=== PATIENT | female | born 2000 | race Caucasian/White ===

== ENCOUNTER 2020-04-11 10:07 | Emergency (ER) | payer OTHER, SELFPAY ==
--- NOTE | ~2020-04-11 | XR_ITS ---
EXAMINATION: XR chest 1V portable EXAM DATE: 04/11/2020 10:47 INDICATION: Chest pain radiating to left arm for months. TECHNIQUE: Portable AP frontal chest x-ray was obtained. Comparison is made to prior examination from 04/12/2018. FINDINGS: The lungs are clear. There are no pleural effusions. The cardiomediastinal silhouette is within normal limits. There is no pneumothorax suspected. The bones and soft tissues are unremarkab le. There is no significant interval change. IMPRESSION: No acute cardiopulmonary findings. Reviewed, dictated and finalized at location A.
[2020-04-11 10:12] VITALS: BP 125/69; PULSE 82; RESP 12; TEMP 36.8; O2SAT 99
--- NOTE | 2020-04-11 10:14 | ECG_ITS ---
Measurements Intervals [place] Rate: 72 P: 36 AR: 147 QRS: 10 QRSD: 96 T: 31 QT: 377 QTc: 415 Interpretive Statements SINUS RHYTHM INCOMPLETE RIGHT BUNDLE BRANCH BLOCK BORDERLINE ECG Electronically Signed On 04-11-2020 12:22:04 CDT by Zander Nielsen D.O.
[2020-04-11 10:38] LABS: Basophils Absolute Auto 0.1 K/mm3 (0.0-0.1); Basophils Percent Auto 0.7 % (0.2-1.2); Eosinophils Absolute Auto 0.1 K/mm3 (0-0.3); Eosinophils Percent Auto 0.7 % (0-4.4); Hematocrit 40.7 % (37.0-47.0); Hemoglobin 13.9 g/dL (12.0-15.0); Immature Granulocyte Absolute 0.02 K/mm3 (0.00-0.031); Immature Granulocyte Percent A 0.3 % (0-0.5); Lymphocytes Absolute Auto 2.48 K/mm3 (0.9-3.2); Lymphocytes Percent Auto 34.9 % (18.3-44.2); Mean Corpuscular HGB Conc 34.2 g/dl (32-36); Mean Corpuscular Volume 87.7 fl (80-100); Mean Platelet Volume 9.6 fl (7.4-10.4); Monocytes Absolute Auto 0.5 K/mm3 (0.1-0.6); Monocytes Percent Auto 6.6 % (2.6-8.5); Neutrophils Percent Auto 56.8 % (45.5-73.1); Platelet Count Result 343 k/mm3 (150-375); Red Blood Count 4.64 M/mm3 (4.2-5.4); Red Cell Distribution Width 12.6 % (11.5-14.5); White Blood Count 7.1 K/mm3 (4.5-10.0)
[2020-04-11 10:46] LABS: Partial Thromboplastin Time 25.7 SECONDS (22.3-36.8); Prothrombin Time 12.8 Seconds (11.1-14.7)
[2020-04-11 10:48] LABS: Anion Gap 8 mmol/L (8-16); Blood Urea Nitrogen 12 mg/dL (7-17); Calcium 9.9 mg/dL (8.4-10.2); Carbon Dioxide 27 mmol/L (22-30); Chloride 104 mmol/L (98-107); Estimated CRCL calculation 120 ml/min; Estimated Glomerular Filt Rate > 60; Glucose 77 mg/dL (65-105); Potassium 3.9 mmol/L (3.4-5.0); Sodium 139 mmol/L (137-145)
[2020-04-11 11:00] LABS: Troponin I < 0.012 ng/mL (0.000-0.034)
--- NOTE | 2020-04-11 11:03 | ED.CHESTPAIN ---
HPI - Chest Pain General Chief Complaint: Chest Pain Stated Complaint: CHEST PAIN X 1 MONTH Time Seen by Provider: 04/11/20 10:11 Source: patient Mode of arrival: ambulatory Limitations: no limitations History of Present Illness HPI narrative: Patient is a 19-year-old female who presents with 1 month duration of chest pain that is intermittent and across the chest patient does note history of anxiety and stress. Patient currently denies any pain has not been seen for this complaint. Patient denies any recent illness or other complaints and on arrival is resting comfortably in the room in no distress and no pain Related Data Allergies Allergy/AdvReac Type Severity Reaction Status Date / Time No Known Allergies Allergy Mild Verified 04/11/20 10:16 Review of Systems Review of Systems: All systems reviewed & are unremarkable except as noted in HPI and below PMFSH Past Medical History Medical History (Updated 04/11/20 @ 11:08 by Aristides Fall PA-C) Anxiety Social History Social History (Updated 04/11/20 @ 11:05 by Aristides Fall PA-C) Smoking status: Current every day smoker Gender identity (if verbalized by the patient): Male Exam Narrative: Exam Narrative: GENERAL: Well-appearing, well-nourished, and in no acute distress. HEAD: Normocephalic, atraumatic. EYES: PERRLA and EOMI. ENT: Nares clear, no rhinorrhea or epistaxis. Mucous membranes moist. NECK: Supple. No adenopathy or masses. CHEST: Clear to auscultation. No respiratory distress. No wheezes rales or rhonchi HEART: Regular rate and rhythm. No murmur heard. Normal peripheral pulses. ABDOMEN: Soft, nontender, nondistended EXTREMITIES: Normal range of motion. No edema. SKIN: Warm, dry, no rash. NEURO: No focal deficits. Alert and oriented x3. Normal speech and gait PSYCH: Normal mood and affect. Course Vital Signs Vital signs: Vital Signs Temperature 98.2 F 04/11/20 10:12 Pulse Rate 82 04/11/20 10:12 Respiratory Rate 04/11/20 10:12 Blood Pressure 125/69 04/11/20 10:12 Pulse Oximetry 99 04/11/20 10:12 Temperature 98.2 F 04/11/20 10:12 Pulse Rate 82 04/11/20 10:12 Respiratory Rate 12 04/11/20 10:12 Blood Pressure 125/69 04/11/20 10:12 Pulse Oximetry 99 04/11/20 10:12 MDM - Chest Pain Lab Data Result diagrams: 04/11/20 10:22 04/11/20 10:22 Labs: Lab Results 04/11/20 04/11/20 04/11/20 Range/Units 10:22 10:22 10:22 WBC 7.1 (4.5-10.0) K/mm3 RBC 4.64 (4.2-5.4) M/mm3 Hgb 13.9 (12.0-15.0) g/dL Hct 40.7 (37.0-47.0) % MCV 87.7 (80-100) fl MCH 30.0 (26-34) pg MCHC 34.2 (32-36) g/dl RDW 12.6 (11.5-14.5) % Plt Count 343 (150-375) k/mm3 MPV 9.6 (7.4-10.4) fl Immature Gran % (Auto) 0.3 (0-0.5) % Neut % (Auto) 56.8 (45.5-73.1) % Lymph % (Auto) 34.9 (18.3-44.2) % Chambers % (Auto) 6.6 (2.6-8.5) % Eos % (Auto) 0.7 (0-4.4) % Baso % (Auto) 0.7 (0.2-1.2) % Lymph # (Auto) 2.48 (0.9-3.2) K/mm3 Chambers # (Auto) 0.5 (0.1-0.6) K/mm3 Eos # (Auto) 0.1 (0-0.3) K/mm3 Baso # (Auto) 0.1 (0.0-0.1) K/mm3 Abs Immat Gran (auto) 0.02 (0.00-0.031) K/mm3 Absolute Neuts (auto) 4.0 (1.3-6.7) K/mm3 Absolute Nucleated RBC 0.0 (0.0-0.012) K/mm3 Nucleated RBC % 0.0 (0.0-0.2) % PT 12.8 (11.1-14.7) Seconds INR 1.0 APTT 25.7 (22.3-36.8) SECONDS Sodium 139 (137-145) mmol/L Potassium 3.9 (3.4-5.0) mmol/L Chloride 104 (98-107) mmol/L Carbon Dioxide 27 (22-30) mmol/L Anion Gap 8 (8-16) mmol/L BUN 12 (7-17) mg/dL Creatinine 0.70 (0.7-1.0) mg/dL Estim Creat Clear Calc 120 ml/min Estimated GFR > 60 (59 - ) Glucose 77 (65-105) mg/dL Calcium 9.9 (8.4-10.2) mg/dL Troponin I < 0.012 (0.000-0.034) ng/mL Imaging Data Radiologist's impression: ITS Impressions Chest X-Ray 04/11/20 10:55 IMPRESSION: No acute ca
[2020-04-11 11:43] VITALS: BP 108/51; PULSE 71; RESP 16; O2SAT 100
== END 2020-04-11 11:45 | disposition home or self-care (01) ==
PROVIDERS: Emergency Provider Emergency Medicine
DX: R07.9 Chest pain, unspecified (principal); F17.200 Nicotine dependence, unspecified, uncomplicated; I45.10 Unspecified right bundle-branch block
CPT/HCPCS: 36415; 71045; 80048; 84484; 85025; 85610; 85730; 93005; 99284

== ENCOUNTER 2020-06-06 16:05 | Outpatient (CLI) | payer OTHER, SELFPAY | END 2020-06-06 16:06 | disposition home or self-care (01) | LOC: ANHLAB 16:07 | PROVIDERS: PCP Family Medicine; Visit Provider Internal Medicine Cardiovascular Disease | DX: R00.2 Palpitations (principal) | CPT/HCPCS: 36415; 84443 ==

== ENCOUNTER 2020-07-16 18:58 | Emergency (ER) | payer OTHER, SELFPAY ==
--- NOTE | ~2020-07-16 | XR_ITS ---
EXAMINATION: XR chest 2V EXAM DATE: 07/16/2020 19:37 INDICATION: Left-sided chest pain radiating down arm. TECHNIQUE: Frontal and lateral projections of the chest obtained and reviewed. Comparison is made to prior examination from 04/11/2020. FINDINGS: The lungs are clear. There are no pleural effusions. The cardiomediastinal silhouette is within normal limits. There is no pneumothorax suspected. The bones and soft tissues are unremarkab le. IMPRESSION: Normal chest x-ray exam. Reviewed, dictated and finalized at location A. DYER IMPRESSION: Normal chest x-ray exam.
[2020-07-16 19:07] VITALS: BP 131/66; PULSE 78; RESP 18; TEMP 35.9; O2SAT 100
--- NOTE | 2020-07-16 19:15 | ED.CHESTPAIN ---
HPI - Chest Pain General Chief Complaint: Chest Pain Stated Complaint: chest pain, left arm pain for couple days Time Seen by Provider: 07/16/20 19:15 Source: patient Mode of arrival: ambulatory Limitations: no limitations History of Present Illness HPI narrative: Patient is a 19-year-old female with a history of anxiety who presents for evaluation of chest pain. Patient states she has had approximately 4 days of constant chest pain over the left chest with a tingling sensation in her left arm. She denies loss of strength or weakness in the left arm. Pain is worse with movement in the left arm and shoulder. She denies any pain when she takes a deep breath. She denies any recent heavy lifting, but does take care of her 3 and 1-year-old who she constantly is chasing around. She denies any fever, chills, cough or shortness of breath. No hemoptysis. No recent Covid infection or history of coagulopathy. No leg swelling or calf pain. She is not on control. No recent long car or air travel. She follows with a manager military, Dr. Zarco, for which she is seen in the past for cocaine induced chest pain. She is actually scheduled for an echo and appointment with their office on Thursday. No worsening pain, however patient's father of a heart attack at 50, she was worried regarding the chronicity of her pain. Patient does not smoke. No recent drug use. Related Data Allergies Allergy/AdvReac Type Severity Reaction Status Date / Time No Known Allergies Allergy Mild Verified 04/11/20 10:16 Review of Systems Review of Systems: Narrative: CONSTITUTIONAL: Denies fever, chills, or sweats. ENT: Denies rhinorrhea, congestion CARDIOVASCULAR: Reports chest pain without palpitations or leg edema RESPIRATORY: Denies cough or dyspnea. GASTROINTESTINAL: Denies abdominal pain, nausea, vomiting, or diarrhea. GENITOURINARY: Denies dysuria or hematuria. SKIN: Denies rash or itching. MUSCULOSKELETAL: Denies back pain, joint pain, or myalgia. NEUROLOGIC: Denies headache, numbness, or weakness. PSYCHIATRIC: Reports anxiety PMFSH Past Medical History Medical History Anxiety Social History Social History (Updated 07/16/20 @ 19:32 by Roxanna Koehler MD) Smoking status: Former smoker Tobacco type: cigarettes Alcohol intake: current Alcohol use details: Social, rare Substance use: former Substance use type: crack/cocaine Living arrangements: with family Gender identity (if verbalized by the patient): Female Exam Narrative: Exam Narrative: GENERAL: Awake, alert, conversant HEAD: Normocephalic, atraumatic. EYES: PERRLA and EOMI. ENT: Nares clear, no rhinorrhea or epistaxis. Mucous membranes moist. NECK: Supple. CHEST: No respiratory distress, breathing even and non labored, left chest wall tenderness which exactly reproduces pain, no crepitus, no ecchymosis, no vesicles or lesions along with thorax or chest HEART: Regular rate, sinus rhythm ABDOMEN:Non distended, non tender EXTREMITIES: Normal range of motion. No edema. SKIN: Warm, dry, no rash. NEURO:No focal deficits. Alert and oriented x3 Course Vital Signs Vital signs: Vital Signs Temperature 35.9 C L 07/16/20 19:07 Pulse Rate 78 07/16/20 19:07 Respiratory Rate 18 07/16/20 19:07 Blood Pressure 131/66 07/16/20 19:07 Pulse Oximetry 100 07/16/20 19:07 Temperature 35.9 C L 07/16/20 19:07 Pulse Rate 69 07/16/20 19:17 Respiratory Rate 18 07/16/20 19:07 Blood Pressure 131/66 07/16/20 19:07 Pulse Oximetry 100 07/16/20 19:07 MDM - Chest Pain MDM Narrative Medical decision making narrative: Patient's EKG and labs are without significant high risk changes. Cardiac risk factors reviewed. Patient is felt low risk for ACS and reasonable for further risk stratification testing as an outpatient. Pain was not sudden or maximal or onset without tearing or ripping quality. No other signs or
[2020-07-16 19:17] VITALS: PULSE 69
--- NOTE | 2020-07-16 19:17 | ECG_ITS ---
Measurements Intervals [place] Rate: 84 P: 54 AR: 142 QRS: 22 QRSD: 95 T: 16 QT: 337 QTc: 399 Interpretive Statements SINUS RHYTHM WITH SINUS ARRHYTHMIA INCOMPLETE RIGHT BUNDLE BRANCH BLOCK BASELINE ARTIFACT- I, II, III, AVR, AVL, AVF BORDERLINE ECG Electronically Signed On 07-16-2020 19:47:51 HE[employer] DATA ANALYST by Zander Nielsen D.O.
[2020-07-16 19:28] LABS: Basophils Percent Auto 0.1 % (0.2-1.2); Hematocrit 36.9 % (37.0-47.0); Hemoglobin 11.6 g/dL (12.0-15.0); Immature Granulocyte Absolute 0.02 K/mm3 (0.00-0.031); Immature Granulocyte Percent A 0.3 % (0-0.5); Lymphocytes Absolute Auto 2.51 K/mm3 (0.9-3.2); Mean Corpuscular HGB Conc 31.4 g/dl (32-36); Mean Corpuscular Hemoglobin 25.8 pg (26-34); Mean Platelet Volume 9.9 fl (7.4-10.4); Monocytes Absolute Auto 0.6 K/mm3 (0.1-0.6); Neutrophils Absolute Auto 3.9 K/mm3 (1.3-6.7); Neutrophils Percent Auto 55.6 % (45.5-73.1); Platelet Count Result 330 k/mm3 (150-375); Red Cell Distribution Width 12.7 % (11.5-14.5)
[2020-07-16 19:39] LABS: INR 0.9
[2020-07-16 19:40] LABS: Partial Thromboplastin Time 26.3 SECONDS (22.3-36.8)
[2020-07-16 19:42] LABS: Anion Gap 8 mmol/L (8-16); Blood Urea Nitrogen 14 mg/dL (7-17); Calcium 9.9 mg/dL (8.4-10.2); Carbon Dioxide 30 mmol/L (22-30); Chloride 101 mmol/L (98-107); Estimated CRCL calculation 105 ml/min; Estimated Glomerular Filt Rate > 60; Glucose 74 mg/dL (65-105); Potassium 3.4 mmol/L (3.4-5.0); Sodium 139 mmol/L (137-145)
[2020-07-16 19:52] LABS: Troponin I < 0.012 ng/mL (0.000-0.034)
[2020-07-16 20:48] VITALS: BP 119/77; PULSE 71; RESP 16; O2SAT 97
== END 2020-07-16 20:49 | disposition home or self-care (01) ==
PROVIDERS: Emergency Provider Emergency Medicine; PCP Family Medicine
DX: R07.89 Other chest pain (principal); Z87.891 Personal history of nicotine dependence; I45.10 Unspecified right bundle-branch block
CPT/HCPCS: 36415; 71046; 80048; 84484; 85025; 85610; 85730; 93005; 99284

== ENCOUNTER 2020-11-22 11:52 | Emergency (ER) | payer OTHER, SELFPAY ==
[2020-11-22 11:56] VITALS: BP 109/77; PULSE 62; RESP 16; TEMP 36.3; O2SAT 100
--- NOTE | 2020-11-22 12:01 | ECG_ITS ---
Measurements Intervals [place] Rate: 62 P: 35 NC: 149 QRS: 23 QRSD: 98 T: 24 QT: 391 QTc: 400 Interpretive Statements SINUS RHYTHM WITH SINUS ARRHYTHMIA INCOMPLETE RIGHT BUNDLE BRANCH BLOCK BORDERLINE ECG Electronically Signed On 11-22-2020 12:11:20 CDT by Zander Nielsen D.O.
[2020-11-22 12:28] LABS: Basophils Absolute Auto 0.1 K/mm3 (0.0-0.1); Basophils Percent Auto 0.8 % (0.2-1.2); Eosinophils Percent Auto 0.3 % (0-4.4); Hematocrit 38.7 % (37.0-47.0); Hemoglobin 12.4 g/dL (12.0-15.0); Immature Granulocyte Absolute 0.01 K/mm3 (0.00-0.031); Immature Granulocyte Percent A 0.2 % (0-0.5); Lymphocytes Absolute Auto 2.44 K/mm3 (0.9-3.2); Mean Corpuscular Hemoglobin 27.4 pg (26-34); Mean Corpuscular Volume 85.6 fl (80-100); Mean Platelet Volume 9.7 fl (7.4-10.4); Monocytes Absolute Auto 0.6 K/mm3 (0.1-0.6); Monocytes Percent Auto 9.1 % (2.6-8.5); Neutrophils Absolute Auto 3.2 K/mm3 (1.3-6.7); Neutrophils Percent Auto 50.6 % (45.5-73.1); Platelet Count Result 301 k/mm3 (150-375); Red Blood Count 4.52 M/mm3 (4.2-5.4); Red Cell Distribution Width 16.1 % (11.5-14.5); White Blood Count 6.3 K/mm3 (4.5-10.0)
[2020-11-22 12:37] LABS: Anion Gap 4 mmol/L (8-16); Blood Urea Nitrogen 11 mg/dL (7-17); Calcium 9.9 mg/dL (8.4-10.2); Carbon Dioxide 30 mmol/L (22-30); Chloride 105 mmol/L (98-107); Estimated CRCL calculation 106 ml/min; Estimated Glomerular Filt Rate > 60; Glucose 97 mg/dL (65-105); Potassium 4.2 mmol/L (3.4-5.0); Sodium 139 mmol/L (137-145)
[2020-11-22 14:04] VITALS: BP 117/72; PULSE 57
[2020-11-22 14:07] VITALS: BP 118/68; PULSE 64; PULSE 67; RESP 16; O2SAT 99
[2020-11-22 14:08] VITALS: BP 124/83; PULSE 69
--- NOTE | 2020-11-22 14:24 | ED.DIZZY ---
HPI - Dizziness General Chief Complaint: Dizziness Stated Complaint: INT DIZZINESS X MONTHS Time Seen by Provider: 11/22/20 13:59 Source: patient and RN notes reviewed Mode of arrival: ambulatory Limitations: no limitations History of Present Illness HPI Narrative: This is a 20 year old female who presents for evaluation for dizziness for several months. She describes her dizziness as wave of nauseousness that comes over her. She states it feels similar to being car sick. She denies headache, blurred vision or double vision. She denies focal weakness, palpitations, or sob. She denies difficulty ambulation. Her dizziness is not present now. She states she called to make an appointment with primary care provider and they sent her to ER. Related Data Home Medications Medication Instructions Recorded Confirmed venlafaxine BYMOUTH 11/22/20 Allergies Allergy/AdvReac Type Severity Reaction Status Date / Time No Known Allergies Allergy Mild Verified 11/22/20 14:05 Review of Systems Review of Systems: All systems reviewed & are unremarkable except as noted in HPI and below Constitutional: Constitutional: Denies chills and Denies fever(s) Eyes: Eyes: Denies change in vision Cardiovascular: Cardiovascular: Reports chest pain (chronic), Denies rapid heart rate and Denies radiating jaw, neck or arm pain Respiratory: Respiratory: Denies cough and Denies dyspnea Gastrointestinal: Gastrointestinal: Denies abdominal pain, Denies diarrhea, Reports nausea and Denies vomiting Neurologic: Denies headache(s), Denies focal weakness and Denies numbness PMFSH Past Medical History Medical History Anxiety Social History Social History (Updated 07/16/20 @ 19:32 by Roxanna Koehler MD) Smoking status: Former smoker Tobacco type: cigarettes Alcohol intake: current Substance use: former Substance use type: crack/cocaine Gender identity (if verbalized by the patient): Female Exam Const: General: no acute distress and alert Orientation/consciousness: patient oriented x3 HENMT: Head: normocephalic and atraumatic Ears: external ears normal and TM's normal bilaterally General nose exam: No nasal polyps present Face and sinus: normal facial exam, sinuses nontender and face symmetric Mouth: Yes Normal oral and palatal mucosa present, Yes lip normal, Yes oropharynx normal and Yes moist mucous membranes Eyes: Pupils: Equal, round and reactive pupils present EOM: EOMs intact bilaterally Resp: Effort & Inspection: normal respiratory effort and no retractions Auscultation: clear to auscultation bilaterally Cardio: Rate: regular rate Rhythm: regular rhythm Heart sounds: no murmurs GI: GI Palp: Yes Soft to palpation, No Tenderness to palpation present (GI) and No Guarding due to palpation present (GI) Auscultation: normal bowel sounds Neuro: General: patient oriented x3, moves all extremities, no meningeal signs, no focal motor deficits and CN's II-XI intact bilaterally Cranial nerves: Yes Nystagmus not present Speech: normal speech Gait exam (Neuro): Normal gait present Extrem: General: normal to inspection and no pedal edema Course Reevaluation(s) Reevaluation #1: I discussed with patient labs are unremarkable . She is not orthostatic. She has no symptoms now and neurological exam is normal so will prescribe zofran and meclizine. She understands she needs to follow up with PCP Date: 11/22/20 Time: 14:28 Vital Signs Vital signs: Vital Signs Temperature 97.3 F L 11/22/20 11:56 Pulse Rate 62 11/22/20 11:56 Respiratory Rate 16 11/22/20 11:56 Blood Pressure 109/77 11/22/20 11:56 Pulse Oximetry 100 11/22/20 11:56 Temperature 97.3 F L 11/22/20 11:56 Pulse Rate 61 11/22/20 14:43 Respiratory Rate 19 11/22/20 14:43 Blood Pressure 123/70 11/22/20 14:43 Pulse Oximetry 100 11/22/20 14:43 MDM - Dizziness Medic
[2020-11-22 14:43] VITALS: BP 123/70; PULSE 61; RESP 19; O2SAT 100
== END 2020-11-22 14:44 | disposition home or self-care (01) ==
PROVIDERS: Emergency Medicine; Emergency Provider General Practice; PCP Family Medicine
DX: R42 Dizziness and giddiness (principal); F41.9 Anxiety disorder, unspecified; Z87.891 Personal history of nicotine dependence; I45.10 Unspecified right bundle-branch block
CPT/HCPCS: 36415; 80048; 81025; 85025; 93005; 99284